=== PATIENT | male | born 1980 | race Asian ===

== ENCOUNTER 2018-01-03 18:58 | Emergency (ER) | payer MEDICAID ==
--- NOTE | 2018-01-03 19:26 | ED Physician Documentation ---
PD HPI WOUND RECHECK - Stated complaint Stated Complaint: WOUND/DIABETIC - Chief complaint Chief Complaint: Wound - Histroy obtained from History obtained from: Patient - History of Present Illness Location: Other (1 week abscesses R buttock and L thigh. Quite painful.) Review of Systems Constitutional: denies: Fever, Chills Throat: reports: Reviewed and negative Cardiac: reports: Reviewed and negative Respiratory: reports: Reviewed and negative PD PAST MEDICAL HISTORY - Past Medical History Past Medical History: Yes Cardiovascular: High cholesterol Endocrine/Autoimmune: Type 2 diabetes - Present Medications Home Medications: Ambulatory Orders Medication Instructions Recorded Confirmed Cephalexin [Keflex] 500 mg PO Q6H #40 capsule 01/03/18 Sulfamethoxazole/Trimethoprim 1 each PO BID #20 tablet 01/03/18 [Sulfamethoxazole-Tmp Ds Tablet] - Allergies Allergies/Adverse Reactions: Allergies Allergy/AdvReac Type Severity Reaction Status Date / Time No Known Drug Allergies Allergy Verified 01/03/18 19:08 - Social History Does the pt smoke?: Yes Smoking Status: Current every day smoker Does the pt drink ETOH?: No Does the pt have substance abuse?: No - Family History Family history: reports: Non contributory PD ED PE NORMAL - Vitals Vital signs reviewed: Yes - General General: Alert and oriented X 3, No acute distress - Derm Derm: Other (He has findings of significant diffuse psoriasis. There are 2 pointed abscess is measuring only about a centimeter each, one over the left lateral thigh and one mid right buttock. Neither have significant cellulitis.) - Neuro Neuro: Alert and oriented X 3, Normal speech Results - Vitals Vitals: Vital Signs - 24 hr 01/03/18 01/03/18 19:06 20:17 Temperature 36.6 C Heart Rate 107 H 80 Respiratory 16 18 Rate Blood Pressure 151/93 H 120/74 O2 Saturation 100 100 Oxygen O2 Source Room air Procedures - Abscess I&D (location) Buttock Preparation: Alcohol, Lidocaine 1% Incision: Incised with scalpel, Purulent drainage, Loculations broken, Culture obtained. No: Packed (too small) Other: Pt tolerated well, Dressing applied L thigh Preparation: Alcohol, Lidocaine 1% Incision: Incised with scalpel, Purulent drainage, Loculations broken. No: Packed (too small), Culture obtained Other: Pt tolerated well, Dressing applied, Antibiotic prescribed Departure - Departure Disposition: 01 Home, Self Care Clinical Impression: Abscess Condition: Good Record reviewed to determine appropriate education?: Yes Instructions: ED Abscess IandD Prescriptions: Cephalexin [Keflex] 500 mg PO Q6H #40 capsule Sulfamethoxazole/Trimethoprim [Sulfamethoxazole-Tmp Ds Tablet] 1 each PO BID #20 tablet Comments: We are performing a wound culture, the results should be done in 48-72 hours. If antibiotic change is necessary we will call you. Return if worse in the meantime, especially if you develop increased pain, fevers, cannot keep down the medication. Otherwise follow-up with your physician in approximately 2-3 days. Your blood pressure was elevated today on check into the emergency department. This does not mean that you have hypertension, it is a common phenomenon to come to the emergency department and have elevated blood pressure. I recommend that you see your primary care physician within the week to have it rechecked when you are feeling better. Discharge Date/Time: 01/03/18 20:19
[2018-01-03] MEDS ORDERED: BUFFERED LIDOCAINE 10 ML SYRINGE SUBQ STA (19:27)
[2018-01-03] MEDS ORDERED: SULFAMETH/TRIMETH DS 800/160 MG TABLET PO STA (20:00)
[2018-01-03] MEDS ORDERED: cephALEXin 250 MG CAPSULE PO STA (20:00)
[2018-01-03 20:19] VITALS: BP 120/74
== END 2018-01-03 20:19 | disposition home or self-care (01) ==
LOC: ED 18:58
DX: L02.31 Cutaneous abscess of buttock (principal); L02.416 Cutaneous abscess of left lower limb; R03.0 Elevated blood-pressure reading, without diagnosis of hypertension; E11.9 Type 2 diabetes mellitus without complications; F17.200 Nicotine dependence, unspecified, uncomplicated
CPT/HCPCS: 10061; 87070; 87205; 99281; 99283; A9270; 87181

== ENCOUNTER 2018-01-29 18:49 | Emergency (ER) | payer MEDICAID ==
[2018-01-29 18:55] VITALS: BP 143/91
[2018-01-29] MEDS ORDERED: BUFFERED LIDOCAINE 10 ML SYRINGE SUBQ STA (19:24)
--- NOTE | 2018-01-29 19:30 | ED Physician Documentation ---
PD HPI SKIN - Stated complaint Stated Complaint: MALE - Chief complaint Chief Complaint: Wound - History obtained from History obtained from: Patient - History of Present Illness Timing - onset: Other (This is a 37-year-old gentleman with underlying Psoriasis who had some MRSA abscesses a little over a month ago for I&D here. He did well on antibiotics but now has a few recurrent lesions on the buttocks. No fevers.) Review of Systems Constitutional: denies: Fever, Chills Cardiac: denies: Chest pain / pressure, Palpitations Respiratory: denies: Dyspnea, Cough PD PAST MEDICAL HISTORY - Past Medical History Cardiovascular: High cholesterol Endocrine/Autoimmune: Type 2 diabetes - Present Medications Home Medications: Ambulatory Orders Medication Instructions Recorded Confirmed Chlorhexidine Gluconate [Hibiclens] 10 ml TP DAILY #1 bot 01/29/18 Ibuprofen [Motrin] 800 mg PO ONCE 01/29/18 01/29/18 Insulin Aspart [NovoLOG] 10 unit SUBQ TIDWM 01/29/18 01/29/18 Insulin Glargine [Lantus Solostar] 70 unit SUBQ QPM 01/29/18 01/29/18 RX: Atorvastatin Calcium 40 mg PO QPM 01/29/18 01/29/18 RX: Glipizide 5 mg PO DAILY 01/29/18 01/29/18 RX: Mupirocin 1 g MABLE BID 14 Days #1 oint...g. 01/29/18 Sulfamethoxazole/Trimethoprim 1 each PO BID #20 tablet 01/29/18 [Sulfamethoxazole-Tmp Ds Tablet] metFORMIN [Glucophage] 500 mg PO BIDWM 01/29/18 01/29/18 - Allergies Allergies/Adverse Reactions: Allergies Allergy/AdvReac Type Severity Reaction Status Date / Time No Known Drug Allergies Allergy Verified 01/29/18 18:55 - Social History Does the pt smoke?: Yes Smoking Status: Current every day smoker Does the pt drink ETOH?: No Does the pt have substance abuse?: No PD ED PE NORMAL - Vitals Vital signs reviewed: Yes - General General: Alert and oriented X 3, No acute distress - Derm Derm: Other (Psoriasis especially on the legs. On the buttocks he has 3 marble sized abscesses) - Neuro Neuro: Alert and oriented X 3, Normal speech Results - Vitals Vitals: Vital Signs - 24 hr 01/29/18 18:52 Temperature 36.3 C L Heart Rate 94 Respiratory 18 Rate Blood Pressure 143/91 H O2 Saturation 99 Oxygen O2 Source Room air - Labs Labs: Microbiology 01/29/18 19:40 Wound Culture - Preliminary Abscess Procedures - Abscess I&D (location) buttocks x 3 Preparation: Alcohol, Lidocaine 1% Incision: Other (3 small abscesses were each incised with scalpel and deloculated. Neither had a cavity of more than a couple of millimeters around so nothing needed packing) Departure - Departure Disposition: 01 Home, Self Care Clinical Impression: Abscess Condition: Good Record reviewed to determine appropriate education?: Yes Instructions: ED Abscess IandD Prescriptions: Chlorhexidine Gluconate [Hibiclens] 10 ml TP DAILY #1 bot RX: Mupirocin 1 g MABLE BID 14 Days #1 oint...g. Sulfamethoxazole/Trimethoprim [Sulfamethoxazole-Tmp Ds Tablet] 1 each PO BID #20 tablet Comments: We are performing a wound culture, the results should be done in 48-72 hours. If antibiotic change is necessary we will call you. Return if worse in the meantime, especially if you develop increased pain, fevers, cannot keep down the medication. Otherwise follow-up with your physician in approximately 2-3 days. Your blood pressure was elevated today on check into the emergency department. This does not mean that you have hypertension, it is a common phenomenon to come to the emergency department and have elevated blood pressure. I recommend that you see your primary care physician within the week to have it rechecked when you are feeling better. Discharge Date/Time: 01/29/18 20:00
[2018-01-29] MEDS ORDERED: SULFAMETH/TRIMETH DS 800/160 MG TABLET PO STA (19:39)
== END 2018-01-29 20:00 | disposition home or self-care (01) ==
LOC: ED 18:49
DX: L02.91 Cutaneous abscess, unspecified (principal); E11.9 Type 2 diabetes mellitus without complications; L40.9 Psoriasis, unspecified; R03.0 Elevated blood-pressure reading, without diagnosis of hypertension; F17.200 Nicotine dependence, unspecified, uncomplicated; Z86.14 Personal history of Methicillin resistant Staphylococcus aureus infection; Z79.4 Long term (current) use of insulin
CPT/HCPCS: 10060; 87070; 87181; 87205; 99283; A9270